=== PATIENT | female | born 1995 | race Hispanic/Latino ===

== ENCOUNTER 2024-10-19 09:44 | Emergency (ER) | payer OTHER ==
[2024-10-19] MEDS ORDERED: hydrOXYzine 25 MG TAB ONE (10:20)
[2024-10-19] MEDS ORDERED: predniSONE 20 MG TAB ONE (10:20)
== END 2024-10-19 10:25 | disposition home or self-care (01) ==
LOC: CSHERS 09:44
DX: L25.9 Unspecified contact dermatitis, unspecified cause (principal)
CPT/HCPCS: 99283; J7512